=== PATIENT | male | born 1940 | race Caucasian/White ===

== ENCOUNTER 2017-05-22 10:48 | Emergency (ER) | payer MEDICARE, OTHER ==
--- NOTE | 2017-05-22 12:27 | ED.PDOC ---
History of Present Illness - General Chief Complaint: General Stated Complaint: back pain Time Seen by Provider: 05/22/17 12:22 Additional Information: 77 YEAR OLD WHITE MALE PRESENTS WITH LOWER BACK PAIN LAST SEVERAL DAYS HE HAS BEEN WORKED UP BY THE [facility] AND DIAGNOSED WITH HNP AND HE IS WAITING FOR NEUROSURGICAL APPOINTMENT ON JUN 16 IN THE MEANTIME HE IS OUT OF THE TRAMADOL AND HE IS A LOT OF PAIN WITH PAIN RADIATING TO THE LEFT LOWER EXTREMITY - History of Present Illness Timing/Duration: 1 week Severity: severe Improving Factors: nothing Associated Symptoms: denies symptoms Allergies/Adverse Reactions: Allergies Codeine Allergy (Verified 12/03/15 12:10) Statins Allergy (Verified 05/22/17 12:22) Sulfa Antibiotics Allergy (Verified 12/03/15 12:10) Home Medications: Ambulatory Orders Gprdacpcjmlqf-Wrgb-Zbrtgjkygw [Fioricet] 1 ea PO Q8H PRN #21 tab 12/03/15 Amoxicillin [Amoxil] 500 mg PO 12/03/15 Aspirin [Aspirin Adult Low Dose] 81 mg PO DAILY 12/03/15 Metoprolol Succinate [Toprol XL] 50 mg PO DAILY 12/03/15 Simvastatin 40 mg PO DAILY 12/03/15 Methocarbamol [Robaxin] 750 mg PO Q8HR #30 tab 05/22/17 Tramadol HCl [Ultram] 50 mg PO Q6H PRN #30 tab 05/22/17 Review of Systems - Review of Systems Constitutional: States: no symptoms reported EENTM: States: no symptoms reported Respiratory: States: no symptoms reported Cardiology: States: no symptoms reported Gastrointestinal/Abdominal: States: no symptoms reported Genitourinary: States: no symptoms reported Musculoskeletal: States: no symptoms reported Skin: States: no symptoms reported Neurological: States: no symptoms reported Endocrine: States: no symptoms reported Hematologic/Lymphatic: States: no symptoms reported Past Medical History (General) - Patient Medical History Hx Asthma: Yes Hx Cardiac Disorders: Yes - OR, high cholesterol Hx Hypertension: Yes Hx Cancer: Yes - Prostate Surgical History: other - Vaccination History Hx Tetanus, Diphtheria Vaccination: Yes Hx Influenza Vaccination: Yes Hx Pneumococcal Vaccination: Yes - Social History Hx Tobacco Use: Yes Hx Alcohol Use: No Hx Substance Use: No Hx Substance Use Treatment: No Family Medical History - Family History Father Family History: Unknown Living Status: Unknown Physical Exam - Physical Exam General Appearance: Alert, Obvious distress, Well Developed, Well Groomed, Well Hydrated, Well Nourished Eye Exam: bilateral normal Ears, Nose, Throat: hearing grossly normal, normal ENT inspection, normal pharynx, abnormal TM (R) Neck: non-tender, full range of motion, supple Respiratory: chest non-tender, lungs clear, normal breath sounds, no respiratory distress, no accessory muscle use, respiratory distress Cardiovascular/Chest: normal peripheral pulses, regular rate, rhythm, no edema, no gallop, no JVD, no murmur Peripheral Pulses: radial,right: 2+, radial,left: 2+, femoral,right: 2+, femoral ,left: 2+ Gastrointestinal/Abdominal: normal bowel sounds, non tender, soft, no organomegaly, no pulsatile mass Back Exam: normal inspection, no CVA tenderness, no vertebral tenderness, CVA tenderness (R) Neurologic: jd edwards developer II-XII nml as tested, no motor/sensory deficits, alert, normal mood/affect, oriented x 3 - LEFT LOWER EXTREMITY HAS DIMINISHED PATELLAR REFLEX AND HIS FOOT DOSIFLEXION IS WEAKER Departure - Departure Clinical Impression: Lumbar back pain with radiculopathy affecting left lower extremity Disposition: Discharge to Home or Self Care Departure Forms: ED Discharge - Pt. Copy, Patient Portal Self Enrollment Activity: ambulate only with walker, no exercise, no lifting Referrals: Higinio Quiñones MD [Primary Care Provider] - 1-2 Weeks Prescriptions: Methocarbamol [Robaxin] 750 mg PO Q8HR #30 tab Tramadol HCl [Ultram] 50 mg PO Q6H PRN #30 tab PRN Reason: Pain Home Medications: Ambulatory Orders Elracbccqeiww-Pjsx-Eeajwuvwjr [Fioricet] 1 ea PO Q8H PRN #21 tab 12/03/15 Amoxicillin [Amoxil] 500 mg PO 12/03/15 Aspirin [Aspirin Adult Low Dose] 81 mg PO DAILY 12/03/15 Metoprolol Succinate [Toprol XL] 50 mg PO DAILY 12/03/15 Simvastatin 40 mg PO DAILY 12/03/15 Methocarbamol [Robaxin] 750 mg PO Q8HR #30 tab 05/22/17 Tramadol HCl [Ultram] 50 mg PO Q6H PRN #30 tab 05/22/17
[2017-05-22 12:30] VITALS: TEMP 97.6
[2017-05-22] MEDS ORDERED: KETOROLAC TROMETHAMINE INJ 60 MG/2 ML VIAL IM ONE (12:35)
[2017-05-22] MEDS ORDERED: ORPHENADRINE CITRATE 30 MG/ML AMP IV PRN (12:35)
[2017-05-22] MEDS ORDERED: ORPHENADRINE CITRATE 30 MG/ML AMP IM ONE (12:55)
[2017-05-22 14:15] VITALS: BP 152/79; O2SAT 92
== END 2017-05-22 14:15 | disposition home or self-care (01) ==
LOC: ER 10:48
DX: M54.5 Low back pain (principal); M54.16 Radiculopathy, lumbar region; I25.2 Old myocardial infarction; E78.00 Pure hypercholesterolemia, unspecified; Z85.46 Personal history of malignant neoplasm of prostate
CPT/HCPCS: J1885; J2360

== ENCOUNTER 2018-05-01 16:01 | Emergency (ER) | payer MEDICARE, OTHER ==
[~2018-05-01 16:01] MED LIST: AMIODARONE HCL 150 MG/3 ML VIAL IVPB ONE; EPINEPHrine INJ 0.1 MG/ML 10 ML SYG ONE; NALOXONE HCL INJ 0.4 MG/ML VIAL ONE; SODIUM BICARBONATE SYRINGE 50 MEQ/50 ML SYG IV ONE
[2018-05-01 19:35] VITALS: TEMP 0; O2SAT 97
--- NOTE | 2018-05-02 03:15 | ED.PDOC ---
History of Present Illness - General Chief Complaint: Cardiac Respiratory Arrest Stated Complaint: cardiac arrest Source: EMS Exam Limitations: clinical condition - History of Present Illness Initial Comments: Patient presents from home in cardiac arrest. He fell from some stairs and hit his forehead. It is likely that he had an TN just prior to the fall. His family started CPR at the scene which was going on for 10 minutes before EMS arrived. He was in VF at that time and was shocked twice and received epinephrine 1 mg IV x two. He went into asystole then PEA. Two more rounds of epinephrine were given and CPR was continued until arrival at the E.D. At this point, the patient had been in CPR for almost 50 minutes. Allergies/Adverse Reactions: Allergies Codeine Allergy (Verified 05/01/18 19:32) Statins Allergy (Verified 05/01/18 19:32) Sulfa Antibiotics Allergy (Verified 05/01/18 19:32) Home Medications: Ambulatory Orders Eqrvgsubsqqjb-Wuff-Tutcigcwol [Fioricet] 1 ea PO Q8H PRN #21 tab 12/03/15 Amoxicillin [Amoxil] 500 mg PO 12/03/15 Aspirin [Aspirin Adult Low Dose] 81 mg PO DAILY 12/03/15 Metoprolol Succinate [Toprol XL] 50 mg PO DAILY 12/03/15 Simvastatin 40 mg PO DAILY 12/03/15 Methocarbamol [Robaxin] 750 mg PO Q8HR #30 tab 05/22/17 Tramadol HCl [Ultram] 50 mg PO Q6H PRN #30 tab 05/22/17 Past Medical History (General) - Patient Medical History Hx Asthma: Yes Hx Cardiac Disorders: Yes - TN, high cholesterol Hx Hypertension: Yes Hx Cancer: Yes - Prostate - Vaccination History Hx Tetanus, Diphtheria Vaccination: - unknown Hx Influenza Vaccination: - unknown Hx Pneumococcal Vaccination: - unknown - Social History Hx Tobacco Use: Yes Hx Alcohol Use: No Hx Substance Use: No Hx Substance Use Treatment: No Family Medical History - Family History Father Family History: Unknown Living Status: Unknown Physical Exam - Physical Exam General Appearance: Other - unresoponsive Eye Exam: bilateral abnormal pupil - fixed and dilated, bilateral other - no corneal reflex Respiratory: other - No spontaneous respirations Cardiovascular/Chest: other - No pulse. No hearbeat by auscultation Neurologic: other - - Doll's eye reflex, no corneal reflex, no pupillary refiex, no response to sternal rub, no withdrawal from pain Skin Exam: pallor Progress - Progress Progress: 05/02/18 03:18 CPR was continued another 26 minutes. Patient was in PEA the entire time. Amiodarone 300 mg IV x one and again 150 mg IV x one were given. Another round of epinephrine was given as well as an amp of bicarbonate. The patient never came out of PEA. 5/5 neurological signs showed no neural activity. Patient was pronounce at 16:18. Patient's sons were notified in the triage room. Departure - Departure Clinical Impression: Cardiac arrest Disposition: Condition: Serious Departure Forms: ED Discharge - Pt. Copy, Patient Portal Self Enrollment Diet: other Activity: other Referrals: Higinio Quiñones MD [Primary Care Provider] - 1-2 Weeks Home Medications: Ambulatory Orders Pgtaslfuxeshj-Lsqo-Kzkzvriskr [Fioricet] 1 ea PO Q8H PRN #21 tab 12/03/15 Amoxicillin [Amoxil] 500 mg PO 12/03/15 Aspirin [Aspirin Adult Low Dose] 81 mg PO DAILY 12/03/15 Metoprolol Succinate [Toprol XL] 50 mg PO DAILY 12/03/15 Simvastatin 40 mg PO DAILY 12/03/15 Methocarbamol [Robaxin] 750 mg PO Q8HR #30 tab 05/22/17 Tramadol HCl [Ultram] 50 mg PO Q6H PRN #30 tab 05/22/17
== END 2018-05-01 18:25 | disposition expired ==
LOC: ER 16:01
DX: I46.9 Cardiac arrest, cause unspecified (principal); I25.2 Old myocardial infarction; E78.00 Pure hypercholesterolemia, unspecified; I10 Essential (primary) hypertension; Z85.46 Personal history of malignant neoplasm of prostate; Z87.891 Personal history of nicotine dependence; Z79.82 Long term (current) use of aspirin; Z79.899 Other long term (current) drug therapy; Z88.5 Allergy status to narcotic agent; Z88.8 Allergy status to other drugs, medicaments and biological substances; Z88.2 Allergy status to sulfonamides
CPT/HCPCS: 80048; 82550; 82553; 83880; 84484; 85025; 92950; J0282; J2310